=== PATIENT | male | born 1985 | race Caucasian/White ===

== ENCOUNTER 2023-10-07 20:36 | Emergency (ER) | payer OTHER ==
[~2023-10-07] VITALS: Ht 170.2 cm; Wt 104.9 kg
[2023-10-07] MEDS ORDERED: Ketorolac 30 MG/ML VIAL IM ONE (21:45)
[2023-10-07] MEDS ORDERED: diphenhydrAMINE 50 MG/ML 1 ML VIAL IM ONE (21:45)
[2023-10-07] MEDS ORDERED: KETOROLAC10 MG PO (22:57)
[2023-10-07] MEDS ORDERED: ZOFRAN ODT4 MG PO (22:57)
[2023-10-07] MEDS ORDERED: Home Ketorolac 10 MG #4 TABS/PACK PO ONE (23:00)
[2023-10-07 23:08] VITALS: BP 134/88
== END 2023-10-07 23:17 | disposition home or self-care (01) ==
LOC: ED 20:36
DX: R51.9 Headache, unspecified (principal)
CPT/HCPCS: J1200; J1885; J2765

== ENCOUNTER 2023-12-05 22:11 | Emergency (ER) | payer OTHER ==
[~2023-12-05] VITALS: Ht 170.2 cm; Wt 104.9 kg
[~2023-12-05 22:11] MED LIST: KETOROLAC10 MG PO; ZOFRAN ODT4 MG PO
[2023-12-05] MEDS ORDERED: TIZANIDINE2 MG PO (22:35)
[2023-12-05] MEDS ORDERED: PANTOPRAZOLE SO40 MG PO (22:35)
[2023-12-05] MEDS ORDERED: NS 1,000 ML IV SCH (23:15)
[2023-12-05 23:36] LABS: BASO # 0.02 K/mm3 (0.02-0.10); EOS # 0.06 K/mm3 (0.04-0.40); EOS % 0.6 % (0.0-4.0); HEMATOCRIT 43.4 % (42.0-52.0); HEMOGLOBIN 14.5 g/dL (13.5-18.0); LYMPH# 1.96 K/mm3 (1.50-4.00); MEAN CELL VOLUME 84 fl (78-100); MEAN CORPUSCULAR HEMOGLOBIN 28 pg (27-31); MEAN CORPUSCULAR HGB CONC 33 g/dL (33-37); MEAN PLATELET VOLUME 9.7 fl (7.4-10.4); MONO # 0.46 K/mm3 (0.20-0.80); NEU # 8.34 K/mm3 (1.40-6.50); PLATELET COUNT 209 K/mm3 (130-400); RED CELL DISTRIBUTION WIDTH 13.5 % (11.5-14.5); WHITE BLOOD COUNT 10.9 K/mm3 (4.8-10.8)
[2023-12-05 23:45] LABS: ALBUMIN 4.6 g/dL (3.5-5.0); SODIUM 141 mmol/L (136-145)
[2023-12-05 23:47] LABS: CALCIUM 9.5 mg/dL (8.3-10.5)
[2023-12-05 23:48] LABS: GLUCOSE 241 mg/dL (75-110); TOTAL PROTEIN 7.4 g/dL (6.4-8.3)
[2023-12-05 23:49] LABS: CARBON DIOXIDE 18 mmol/L (22-29)
[2023-12-05 23:50] LABS: TOTAL BILIRUBIN 0.4 mg/dL (0.2-1.2)
[2023-12-05 23:53] LABS: AST-SGOT 30 U/L (5-34)
[2023-12-05 23:54] LABS: ALT/SGPT 48 U/L (0-55)
[2023-12-06 00:01] LABS: TROPONIN-I < 0.030 ng/mL (0.00-0.033)
[2023-12-06 00:40] VITALS: BP 136/75
== END 2023-12-06 00:41 | disposition home or self-care (01) ==
LOC: ED 22:11
PROVIDERS: Physician Assistant
DX: R00.0 Tachycardia, unspecified (principal); T50.995A Adverse effect of other drugs, medicaments and biological substances, initial encounter; F41.9 Anxiety disorder, unspecified; F32.A Depression, unspecified; R73.9 Hyperglycemia, unspecified
CPT/HCPCS: J7030